=== PATIENT | male | born 1985 | race African-American/Black ===

== ENCOUNTER 2021-10-31 05:36 | Day surgery (SDC) | payer OTHER ==
[~2021-10-31] VITALS: Ht 170.2 cm; Wt 71.9 kg
[2021-10-31 06:24] VITALS: BP 130/86; PULSE 73; TEMP 97.7
[2021-10-31] MEDS ORDERED: NORCO 325 MG-7.1 TAB PO (06:29)
[2021-10-31] MEDS ORDERED: MIRALAX119G PO (06:29)
[2021-10-31 08:19] VITALS: TEMP 97.5
[2021-10-31 08:45] VITALS: BP 151/95; PULSE 67
--- NOTE | 2021-10-31 08:45 | NUR ---
Patient returns to room 8 per cart from PACU accompanied by Lola LOTT and is awake and alert. Temp 97.9 and room air sats 98%. IV fluids infusing and site is free of redness or swelling. States that he is needing to urinate and ambulates across the hallway. Gait steady. IV to INT. Left in bathroom and provided call light.
[2021-10-31 09:00] VITALS: BP 153/95; PULSE 60
--- NOTE | 2021-10-31 09:00 | NUR ---
Returns to room and given water to drink. Offers no complaints of pain or nausea.
[2021-10-31 09:15] VITALS: BP 136/94; PULSE 63
--- NOTE | 2021-10-31 09:15 | NUR ---
Eating toast and continues to drink water.
[2021-10-31 09:30] VITALS: BP 137/91; PULSE 65
--- NOTE | 2021-10-31 09:30 | NUR ---
Dr. Servin in the room and talks with patient. Informed that he will need treatment and Dr. Servin is talking with infectious disease for proper treatment. Patient voices understanding of this.
--- NOTE | 2021-10-31 10:07 | NUR ---
Dismissal instructions given and INT discontinued. Site is free of redness or swelling. Superivsor in the room and is ready for discharge.
--- NOTE | 2021-10-31 10:15 | NUR ---
Patient dismissed to home with discharge instructions in hand.
== END 2021-10-31 10:15 | disposition home or self-care (01) ==
LOC: SDCO 05:36
DX: B65.0 Schistosomiasis due to Schistosoma haematobium [urinary schistosomiasis] (principal); B89 Unspecified parasitic disease; N30.20 Other chronic cystitis without hematuria; Z79.891 Long term (current) use of opiate analgesic
CPT/HCPCS: J0690; J1170; J1885; J2405; J2704; J7120

== ENCOUNTER → 2022-01-03 | Outpatient (CLI) | payer OTHER ==
[~2022-01-03] MED LIST: MIRALAX119G PO; NORCO 325 MG-7.1 TAB PO
== END ==
LOC: COL.RAD 07:01
DX: K21.9 Gastro-esophageal reflux disease without esophagitis (principal); K92.1 Melena; R19.7 Diarrhea, unspecified
CPT/HCPCS: A9541

== ENCOUNTER → 2022-03-04 | Outpatient (CLI) | payer OTHER | LOC: MHCPAIN 09:51 | DX: M47.897 Other spondylosis, lumbosacral region (principal); M54.50 Low back pain, unspecified; M53.3 Sacrococcygeal disorders, not elsewhere classified; M79.2 Neuralgia and neuritis, unspecified | CPT/HCPCS: G0463 ==